=== PATIENT | female | born 2000 | race Caucasian/White ===

== ENCOUNTER 2022-12-12 04:07 | Day surgery (SDC) | payer OTHER, SELFPAY ==
[2022-12-12] VITALS (25 sets, daily range): BP systolic 90–120; BP diastolic 48–76; PULSE 56–92; RESP 16–20; TEMP 36.4–36.7; O2SAT 96–100
--- NOTE | 2022-12-12 04:35 | CRLHL7_ITS ---
For Patients: As a result of the Century Cures Act, medical imaging exams and procedure reports are released immediately into your electronic medical record. You may view this report before your referring provider. If you have questions, please contact your health care provider. INDICATION: Left abdominal pain. TECHNIQUE: CT abdomen and pelvis acquired with 54 cc Omnipaque 370 IV contrast. COMPARISON: None. FINDINGS: Lower chest: Lung bases clear Liver: Unremarkable. Normal in size and attenuation. No suspicious masses. Gallbladder and bile ducts: Unremarkable. No stones or inflammation. No biliary dilatation. Pancreas: Unremarkable. No mass or inflammation. Spleen: Unremarkable. Normal in size. No masses. Adrenal glands: Unremarkable. No nodules. Kidneys: Unremarkable. No suspicious masses, stones, or hydronephrosis. GI tract: Unremarkable. Normal in caliber. No sign of mass or inflammation. Normal appendix. Vasculature: Abdominal aorta is normal in caliber. Mesenteric arteries are patent. Lymph nodes: No lymphadenopathy. Peritoneum/Abdominal Wall: Trace free fluid in the deep pelvis. No organized fluid collection or free intraperitoneal air. No mesenteric or omental nodularity. No abdominal wall mass. Pelvis: Complex multiloculated pelvic cystic mass likely arising from the left ovary measuring 6.8 x 10.5 by 11.0 centimeters. This contains a dominant 10 centimeter cystic component with additional smaller cysts. Recommend further assessment with pelvic ultrasound. 2.1 centimeter right ovarian cyst with an irregular hyperattenuating rim, compatible with a physiologic corpus luteum. Bones: Unremarkable for age. IMPRESSION: Complex multilocular pelvic cystic lesion, likely arising from the left ovary and measuring up to 11 centimeters. Recommend further characterization to begin with ultrasound. Please note that all CT scans at this facility use dose modulation, iterative reconstruction, and/or weight-based dosing when appropriate to reduce radiation dose to as low as reasonably achievable. Dictated by Vic Mcgregor MD @ 12/12/2022 6:35:53 AM (Electronically Signed)
--- NOTE | 2022-12-12 04:47 | ED.ABDPAIN ---
HPI - Abdominal Pain General Date Seen: 12/12/22 Chief Complaint: Abdominal Pain Stated Complaint: Lower Left Abdominal Pain Time Seen by Provider: 12/12/22 04:19 Related Data Allergies Allergy/AdvReac Type Severity Reaction Status Date / Time sulfa Allergy Uncoded 12/12/22 04:16 PFSH PFS Social History Smoking Status: Current some day smoker Do you use any of these nicotine containing products: Vaping Products Second hand tobacco smoke exposure: Yes How often do you have a drink containing alcohol: monthly or less AUDIT-C Alcohol total score: 1 Non-prescribed substance use: denies use Exam Const: Vital Signs, click to edit/add: Vital Signs - 24 hr 12/12/22 04:12 12/12/22 06:22 Temperature 97.8 F Pulse Rate [Left P ulse Oximeter] 76 64 Respiratory Rate 16 16 Blood Pressure [Ri ght Upper Arm] 120/75 117/64 Pulse Oximetry 96 98 Oxygen Delivery Me thod Room Air Room Air Course Reevaluation(s) Reevaluation #1: Patient having increased pain, her white count, liver function tests amylase lipase are all normal. We will go ahead and give her some Dilaudid, I will change her test to serum, as she is unable to pee for us, Time: 05:29 Reevaluation #2: Discussed with the patient, I reviewed the CT scan report, after I initially sought, she has a multiloculated left-sided ovarian cysts, my concern is torsion, I just had the financial recording clerk schedule checker, she could not get blood for the left ovary, this prompted immediate call to my foreign student adviser, Dr.Nicole Tadeo who will relay the message to the oncoming foreign student adviser who is changing over at 7:00 a.m.. She will need to go to the emergency room with likely a laparoscopy, possible laparotomy given the fact what is going on. I explained this to both the mother and patient, we will do a swab for COVID, and also keep her NPO. Time: 07:09 Vital Signs Vital signs: Initial Vital Signs Temperature 97.8 F 12/12/22 04:12 Temperature Source Temporal Artery Scan 12/12/22 04:12 Pulse Rate 76 12/12/22 04:12 Pulse Rhythm Regular 12/12/22 04:12 Respiratory Rate 16 12/12/22 04:12 Blood Pressure 120/75 12/12/22 04:12 Blood Pressure Mean 90 12/12/22 04:12 Blood Pressure Position Semi-Fowlers 12/12/22 04:12 Pulse Oximetry 96 12/12/22 04:12 Oxygen Delivery Method Room Air 12/12/22 04:12 Vital Signs Temperature 97.8 F 12/12/22 04:12 Pulse Rate 76 12/12/22 04:12 Respiratory Rate 16 12/12/22 04:12 Blood Pressure 120/75 12/12/22 04:12 Pulse Oximetry 96 12/12/22 04:12 Oxygen Delivery Method Room Air 12/12/22 04:12 Temperature 97.8 F 12/12/22 04:12 Pulse Rate 64 12/12/22 06:22 Respiratory Rate 16 12/12/22 06:22 Blood Pressure 117/64 12/12/22 06:22 Pulse Oximetry 98 12/12/22 06:22 Oxygen Delivery Method Room Air 12/12/22 06:22 MDM - Abdominal Pain Medical Records Attestation: I reviewed the patient's medical records. Lab Data Attestation: I reviewed the patient's lab results. Labs: Lab Results 12/12/22 12/12/22 12/12/22 Range/Units 04:40 04:45 04:45 WBC 9.14 (4.50-11.00) K/uL RBC 4.54 (4.00-5.20) m/uL Hgb 13.4 (12.0-16.0) gm/dL Hct 38.7 (33.0-51.0) % MCV 85 (80-100) fL MCH 30 (26-34) pg MCHC 35 (32-36) gm/dL RDW Coeff of Jimy 11.8 (11.5-15.5) % Plt Count 219 (140-440) K/uL Neut % (Auto) 81.5 H (42.0-72.0) % Lymph % (Auto) 14.7 L (20-44) % Sunflower % (Auto) 2.6 (0.0-11.0) % Eos % (Auto) 0.1 (0.0-7.0) % Baso % (Auto) 0.8 (0.0-3.0) % Neut # (Auto) 7.40 H (1.7-7.0) K/uL Lymph # (Auto) 1.30 (0.90-2.90) K/uL Sunflower # (Auto) 0.20 (0.00-0.90) K/UL Eos # (Auto) 0.01 (0.00-0.50) K/uL Baso # (Auto) 0.07 (0.00-0.30) K/uL Total Bilirubin 0.4 (0.1-1.5) mg/dL Direct Bilirubin 0.1 (0.0-0.5) mg/dL AST 27 (12-35) U/L ALT 17 (4-35) U/L Alkaline Phosphatase 56 (40-150) U/L C-Reactive Protein < 0.5 L (0.5-1.0) mg/dL Total Protein 7.8 (6.0-8.3) g/dL Albumin 4.5 (3.3-5.0) g/dL Lipase 117 (23-300) U/L Procalcitonin < 0.03 L (<0.50) ng/mL HCG, Qual Cancelled Negative Imaging Data CT scan - abdomen: My impression: Loculated left-sided ovarian cyst, with possible torsion. Radiologist's impression: Patient: DOMINIQUE MUHAMMAD Facility: [facility] Site . Site : 2001 Study: CT Abdomen/Pelvis with 54cc [id number] contrast-12/12/2022 6:00:40 AM Ordering Physician: Angel Lerma Final Report: INDICATION: Left abdominal pain. TECHNIQUE: CT abdomen and pelvis acquired with 54 cc Omnipaque 370 IV contrast. COMPARISON: None. FINDINGS: Lower chest: Lung bases clear Liver: Unremarkable. Normal in size and attenuation. No suspicious masses. Gallbladder and bile ducts: Unremarkable. No stones or inflammation. No biliary dilatation. Pancreas: Unremarkable. No mass or inflammation. Spleen: Unremarkable. Normal in size. No masses. Adrenal glands: Unremarkable. No nodules. Kidneys: Unremarkable. No suspicious masses, stones, or hydronephrosis. GI tract: Unremarkable. Normal in caliber. No sign of mass or inflammation. Normal appendix. Vasculature: Abdominal aorta is normal in caliber. Mesenteric arteries are patent. Lymph nodes: No lymphadenopathy. Peritoneum/Abdominal Wall: Trace free fluid in the deep pelvis. No organized fluid collection or free intraperitoneal air. No mesenteric or omental nodularity. No abdominal wall mass. Pelvis: Complex multiloculated pelvic cystic mass likely arising from the left ovary measuring 6.8 x 10.5 by 11.0 centimeters. This contains a dominant 10 centimeter cystic component with additional smaller cysts. Recommend further assessment with pelvic ultrasound. 2.1 centimeter right ovarian cyst with an irregular hyperattenuating rim, compatible with a physiologic corpus luteum. Bones: Unremarkable for age. IMPRESSION: Complex multilocular pelvic cystic lesion, likely arising from the left ovary and measuring up to 11 centimeters. Recommend further characterization to begin with ultrasound. Please note that all CT scans at this facility use dose modulation, iterative reconstruction, and/or weight-based dosing when appropriate to reduce radiation dose to as low as reasonably achievable. Dictated by Vic Mcgregor MD @ 12/12/2022 6:35:53 AM (Electronic Signature) Discharge Plan Discharge Clinical Impression: Abdominal pain, Torsion of left ovary, Ovarian cyst Patient Disposition: Admitted As Inpatient Condition: Stable
[2022-12-12 04:52] LABS: Basophils Absolute Auto 0.07 K/uL (0.00-0.30); Basophils Percent Auto 0.8 % (0.0-3.0); Eosinophils Absolute Auto 0.01 K/uL (0.00-0.50); Eosinophils Percent Auto 0.1 % (0.0-7.0); Hematocrit 38.7 % (33.0-51.0); Hemoglobin* 13.4 gm/dL (12.0-16.0); Immature Granulocytes Abs Auto 0.03 K/uL (0.00-0.30); Immature Granulocytes Pct Auto 0.3 %; Lymphocytes Percent Auto 14.7 % (20-44); Mean Corpuscular HGB Conc 35 gm/dL (32-36); Mean Corpuscular Hemoglobin 30 pg (26-34); Mean Corpuscular Volume 85 fL (80-100); Monocytes Percent Auto 2.6 % (0.0-11.0); Neutrophils Percent Auto 81.5 % (42.0-72.0); Platelet Count* 219 K/uL (140-440); RDW Coefficient of Variation % 11.8 % (11.5-15.5); Red Blood Count 4.54 m/uL (4.00-5.20); White Blood Count* 9.14 K/uL (4.50-11.00)
[2022-12-12 04:53] LABS: Slide Review Reflex No
[2022-12-12] MEDS: 0.9 % SODIUM CHLORIDE 1000 ml 1,000 ML IV (04:56)
[2022-12-12] MEDS: ONDANSETRON 2 MG/ML inj 4 MG IVP (04:56)
[2022-12-12] MEDS: KETOROLAC 30 MG/ML inj IVP (04:57)
[2022-12-12 05:19] LABS: Albumin* 4.5 g/dL (3.3-5.0)
[2022-12-12 05:22] LABS: Aspartate Amino Transferase* 27 U/L (12-35); Bilirubin Direct* 0.1 mg/dL (0.0-0.5); Bilirubin Total* 0.4 mg/dL (0.1-1.5); Total Protein* 7.8 g/dL (6.0-8.3)
[2022-12-12 05:23] LABS: Alanine Aminotransferase* 17 U/L (4-35); Alkaline Phosphatase* 56 U/L (40-150); Lipase* 117 U/L (23-300)
[2022-12-12 05:29] LABS: C Reactive Protein* < 0.5 mg/dL (0.5-1.0)
[2022-12-12] MEDS: HYDROmorphone 0.5 mg/0.5 ml inj IVP (05:29)
[2022-12-12 05:38] LABS: HCG Qualitative Serum* Negative (Negative)
[2022-12-12 05:44] LABS: Procalcitonin* < 0.03 ng/mL (<0.50)
--- NOTE | 2022-12-12 05:57 | CRLHL7_ITS ---
For Patients: As a result of the Century Cures Act, medical imaging exams and procedure reports are released immediately into your electronic medical record. You may view this report before your referring provider. If you have questions, please contact your health care provider. INDICATION: Left pelvic pain. TECHNIQUE: Ultrasound pelvis transabdominal. Real-time sonographic images with spectral and color Doppler imaging of the ovaries were obtained. COMPARISON: CT abdomen pelvis 12/12/2022. FINDINGS: Uterus: 8.0 x 2.9 x 3.8 cm. Normal echotexture of the myometrium. No masses. Endometrium: Endometrial thickness measures 1.1 mm. No sign of endometrial mass or fluid. Right ovary: 4.4 x 2.3 x 3.0 centimeters. No right ovarian or right adnexal masses. Normal arterial flow is demonstrated in the right ovary. Left ovary: Size not well depicted due to large multilocular cystic mass. No arterial or venous flow detected in the left ovarian stroma. Cul-de-sac: No significant free fluid. IMPRESSION: Large multilocular cystic left ovarian cystic mass, the extent of which is better depicted on the comparison CT. No Doppler flow is detected in the left ovarian stroma, highly concerning for torsion. Findings discussed with Dr. Ortiz by Dr. Mcgregor on 12/12/2022 at 8:00 am Dictated by Vic Mcgregor MD @ 12/12/2022 7:59:34 AM (Electronically Signed)
[2022-12-12] MEDS: HYDROmorphone 0.5 mg/0.5 ml inj 0.25 MG IVP (07:11)
[2022-12-12] MEDS: 0.9 % SODIUM CHLORIDE 1000 ml 1,000 ML 125 ML IV (07:12)
[2022-12-12 07:52] LABS: SARS PCR* Negative SARS-CoV-2 (Negative)
[2022-12-12] MEDS: BUPIVACAINE 0.5% 30 ML INJECTION (08:35)
[2022-12-12] MEDS: LACTATED RINGERS 1000 ML 1,000 ML 125 ML IV (09:38)
--- NOTE | 2022-12-12 10:27 | P.ANES_ITS ---
Anesthesia Charges Start Date/Time Anesthesia Start Date: 12/12/22 Anesthesia Start Time: 07:55 Stop Date/Time Anesthesia Stop Date: 12/12/22 Anesthesia Stop Time: 10:25 Summary Emergency: INTERNAL MEDICINE HOSPITALIST
--- NOTE | 2022-12-12 10:50 | P.GYNPRC_ITS ---
Procedure Note Date Seen: 12/12/22 Procedure Details: PREOPERATIVE DIAGNOSIS: Large left ovarian cyst with ovarian torsion POSTOPERATIVE DIAGNOSIS: Left ovarian and tubal torsion Endometriosis PROCEDURE: Laparoscopy with left salpingo-oophorectomy, excision of endometriosis SURGEON: Laurita Hooper MD ANESTHESIA: General IV FLUIDS: 1300 mL crystalloid URINE OUTPUT: 600 mL EBL: 10 mL FINDINGS: 1. Upon pelvic exam under anesthesia, the cervix and vagina were normal in appearance. Uterus was mobile and anteverted, of normal size and texture. There was a large soft mass palpable superior to and to the right of the uterus. 2. Upon laparoscopy, survey of the upper abdomen revealed a normal appearance to the inferior edge of the liver, gallbladder and stomach. Bowels were grossly normal appearance, though appendix was not visualized. Survey of the pelvis revealed a large multiloculated left ovarian mass. The ovary itself appeared to be intimately connected to this and full of clotted blood. The tube and ovary had been twisted 4 times. The uterus was normal appearance.. Right tube and ovary were normal in appearance. There were powder burn lesions along the anterior pelvis, in the left ovarian fossa and in the right cul-de-sac. The bladder reflection was normal in appearance. COMPLICATIONS: None CONSENT: Bertha was seen in the emergency room by request of Dr. Ortiz. CT images were reviewed, showing large left adnexal mass. I recommended laparoscopic left ovarian cystectomy to the patient, and discussed with her the likelihood of removal of the left ovary as well. We discussed risks of procedure, including bleeding/hemorrhage, infection, damage to internal organs, the possibility of impact on fertility and earlier menopause with removal of one ovary. Consent form was reviewed with and signed by patient. PROCEDURE IN DETAIL: Patient was taken to the operating room with IV running. She was positioned in dorsal lithotomy position with her legs fully supported in Yellofin stirrups. General anesthesia was administered. She was prepped and draped in the usual sterile fashion. Bimanual exam was performed for the above- noted findings. Speculum was inserted. A single-toothed uterine manipulator was inserted through the cervix into the lower uterine segment, and affixed to the anterior cervical lip. Speculum was removed. Hall catheter was placed. Patient's legs were placed in neutral position. Attention was turned to patient's abdomen. The infraumbilical area was infiltrated with small amount of Marcaine. An infraumbilical incision was made with a scalpel and carried through to the underlying layer of fascia with a hemostat. The 5 mm Fios Kii trocar was assembled with laparoscope within, and insufflator attached. While tenting up the abdomen manually, the trocar was passed through the anterior abdominal wall into the peritoneal cavity. Trocar was removed. Pneumoperitoneum was achieved. Survey of abdomen and pelvis revealed the above-noted findings. Three additional port sites were created. The first was in the patient's left lower quadrant, just superior medial to the left ASIS. The second was a hand's breath superior to and slightly medial to the first. The third was in the patient's right lower quadrant, just superior medial to the right ASIS. Each was infiltrated with small amount of Marcaine prior to incision. A 5 mm incision was made at each site, making sure the large vessels were out of harm's way. A 5 mm Fios Kii port was inserted at each site, under direct visualization and without complication. The balloon on each of the four ports was inflated, holding each in place. First, the left ovary and tube were untwisted, allowing for further inspection of the mass in the pelvic sidewall. What appeared to be the remnants of the left ovary were full of clotted blood, and left ovary was intimately associated with the large multiloculated mass. Because of this, the decision was made to sacrifice the majority of the ovary. The tube, having been twisted around the mass, appeared deep red and devascularized near its fimbriated portion. The tube was thus sacrificed as well. The ovary and mass were held away from the left pelvic sidewall and the infundibulopelvic ligament was divided with the Thunderbeat device. Dissection was carried laterally to medially, ultimately going through the mid isthmic portion of the fallopian tube and the left uterosacral ligament. The specimen was released into the upper abdomen. The remainder of the left fallopian tube was divided from the surrounding mesosalpinx, moving laterally to medially, and was amputated at the left cornua. The pedicle of the left ovary was examined, and there was slight oozing that was staunched with the Thunderbeat device. It did appear that there was a small amount of healthy ovarian cortex remaining at this site. Attention was turned to the suspected endometriosis along the anterior pelvic wall. Two lesions were excised sharply and hemostasis of the dissection bed was achieved with monopolar cautery. Attention was then turned to the powder burn lesions along the left ovarian fossa, which were similarly held away from the pelvic sidewall and amputated sharply. Minimal monopolar cautery was required to obtain hemostasis. Finally, the patch of powder burn lesions in the right cul-de-sac were sharply excised well holding peritoneum away from the pelvic sidewall. Again, hemostasis was achieved with monopolar cautery. There was 1 lesion that was treated with cautery alone due to inability to completely excise it due to position. The 5 mm left lower quadrant port was removed and replaced with a 15 mm port. The large Endo-Catch bag was placed through this port and deployed. The specimen was placed within it and the bag was cinched up. The port was removed and the bag was pulled up through the left lower quadrant incision. The cyst was ruptured within the bag, spilling abundant clear fluid. Thus it was removed from the patient's abdomen and sent to pathology. The fascia at this site was closed with 2 [id number] sutures of 0 Vicryl. The pelvis was again suctioned and hemostasis was noted of all dissection sites and the left ovarian pedicle. All instruments were removed from the ports. The balloon tips were deflated, and pneumoperitoneum was released. The ports were removed. The monopolar cautery was used to obtain hemostasis at all of the port sites. The skin was then closed with a subcuticular stitch of 4-0 Vicryl on some ports, and 4-0 Monocryl at others. Surgical glue was applied above this. The uterine manipulator was removed, and hemostasis was noted. Hall catheter was removed. Patient tolerated procedure well and was taken to recovery area in stable condition.
--- NOTE | 2022-12-18 10:56 | SUR.OPER ---
Verified procedure with Aurea HICKMAN.
== END 2022-12-12 13:47 | disposition home or self-care (01) ==
LOC: ED 07:15 → OR 07:54
PROVIDERS: Emergency Provider Family Medicine; Visit Provider Obstetrics & Gynecology
PROC: (CPT 58661; principal; 2022-12-12 08:00)
DX: N83.512 Torsion of left ovary and ovarian pedicle (principal); N83.202 Unspecified ovarian cyst, left side; R10.32 Left lower quadrant pain; N80.359 Endometriosis of pelvic sidewall, unspecified side, unspecified depth
CPT/HCPCS: 58661; 58662; 00840; 36415; 36600; 74177; 76856; 80076; 81001; 82803; 83690; 84145; 84703; 85025; 86140; 87635; 88305; 88307; 93976; 99140; 99285; J0330; J1170; J1885; J2250; J2405; J2704; J3010; J3490; J7030; J7120; Q9967